=== PATIENT | female | born 1965 | race African-American/Black ===

== ENCOUNTER 2018-06-13 18:14 | Emergency (ER) | payer OTHER ==
[~2018-06-13] VITALS: Ht 167.6 cm; Wt 104.5 kg
[2018-06-13 18:20] VITALS: BP 138/83
[2018-06-13 19:27] VITALS: BP 138/83
== END 2018-06-13 19:27 | disposition home or self-care (01) ==
LOC: MED 18:14
DX: M17.12 Unilateral primary osteoarthritis, left knee (principal); I10 Essential (primary) hypertension; E11.9 Type 2 diabetes mellitus without complications
CPT/HCPCS: 29505; 73562; 99283; Q0092

== ENCOUNTER 2019-02-20 21:53 | Emergency (ER) | payer OTHER ==
[~2019-02-20] VITALS: Ht 167.6 cm; Wt 101.2 kg
[2019-02-20 21:59] VITALS: BP 140/80
--- NOTE | 2019-02-20 21:59 | NUR ---
TO BED # 05 AMBULATORY
[2019-02-20] MEDS ORDERED: ONDANSETRON 4 MG ODT PO ONE (22:45)
[2019-02-20] MEDS ORDERED: NACL 0.9% 1,000 ML IV ONE (23:28)
[2019-02-20] MEDS ORDERED: MORPHINE SULFATE 4 MG/ML SYR IVP ONE (23:30)
[2019-02-20] MEDS ORDERED: ONDANSETRON 4 MG/2 ML VIAL IVP ONE (23:30)
[2019-02-21 00:02] LABS: ALBUMIN 3.5 g/dL (3.4-5.0); CARBON DIOXIDE 30.5 mmol/L (21-32); CREATININE 1.2 mg/dL (0.6-1.3); POTASSIUM 4.5 mmol/L (3.5-5.1); TOTAL BILIRUBIN 0.5 mg/dL (0.0-1.0)
[2019-02-21 00:06] LABS: BASOPHILS # (AUTO) 0.1 K/uL (0.00-0.22); BASOPHILS % (AUTO) 0.8 % (0.0-2.0); EOSINOPHILS # (AUTO) 0.1 K/uL (0-0.4); EOSINOPHILS % (AUTO) 0.7 % (0.0-4.0); HEMATOCRIT 43.8 % (36-48); HEMOGLOBIN 14.7 g/dL (12.0-16.0); LYMPHOCYTES # (AUTO) 2.4 K/uL (2.5-16.5); LYMPHOCYTES % (AUTO) 25.6 % (20.5-51.1); MEAN CORPUSCULAR HEMOGLOBIN 28 pg (27-31); MEAN CORPUSCULAR HGB CONC 34 g/dL (33-37); MONOCYTES # (AUTO) 0.5 K/uL (0.8-1.0); MONOCYTES % (AUTO) 5.8 % (1.7-9.3); NEUTROPHILS # (AUTO) 6.2 K/uL (1.8-7.7); NEUTROPHILS % (AUTO) 67.1 % (42.2-75.2); PLATELET COUNT (AUTO) 280 K/uL (140-450); RED BLOOD CELL COUNT(AUTO) 5.34 MIL/uL (4.20-5.40); RED CELL DISTRIBUTION WIDTH 13.5 % (11.6-13.7); WHITE BLOOD COUNT (AUTO) 9.2 K/uL (4.8-10.8)
[2019-02-21 00:18] LABS: APPEARANCE,URINE CLEAR (CLEAR); BILIRUBIN,URINE NEGATIVE (NEGATIVE); BLOOD, URINE NEGATIVE (NEGATIVE); COLOR,URINE YELLOW (YELLOW); LEUKOCYTE ESTERASE ,URINE NEGATIVE (NEGATIVE); NITRITE, URINE NEGATIVE (NEGATIVE); PH,URINE 7.5 (5.0-9.0); UGLUCOSE NEGATIVE (NEGATIVE)
[2019-02-21] MEDS ORDERED: DICYCLOMINE HCL LIQUID 20 MG, ALUMINUM HYD/MAG/SIMETHICONE 30 ML, LIDOCAINE VISCOUS 2% ... PO ONE ×3 (00:40)
--- NOTE | 2019-02-21 00:51 | NUR ---
PT 189/81, HR 84. PT DENIES CP, SOB, DIZZINESS, N/V. PT IS TAKING LISINOPRIL 20MG DAILY, AMLODIPINE 5MG PO DAILY, AND HCTZ 25MG PO DAILY FOR HTN. DR RODRIGUES MADE AWARE. PER ER MD, NO NEED FOR MED AT THIS TIME, PT INSTRUCTED TO KEEP TAKING RX HTN MEDS ORDERED. OK FOR DISCHARGE.
--- NOTE | 2019-02-21 00:51 | NUR ---
PT LAYING IN BED, RR EVEN AND UNLABORED. REPORTS IMPROVEMENT IN NAUSEA AND PAIN AFTER MEDS, REPORTS 2/10 RUQ/R FLANK PAIN. ADMINISTERED GI COCKTAIL WITH EDUCATION, PT VERBALIZED UNDERSTANDING, TOLERATED MED WELL. ALL NEEDS MET.
[2019-02-21 01:20] VITALS: BP 189/81
--- NOTE | 2019-02-21 01:20 | NUR ---
Patient discharged with v/s stable. Written and verbal after care instructions given and explained. Patient alert, oriented and verbalized understanding of instructions. Ambulatory with steady gait. All questions addressed prior to discharge. ID band removed. Patient advised to follow up with PMD. Rx of KIMBERLEE ORTIZ given. Patient educated on indication of medication including possible reaction and side effects. Opportunity to ask questions provided and answered.
[2019-02-22] MEDS ORDERED: METF500T2 PO (17:22)
[2019-02-22] MEDS ORDERED: ONDA4TAB PO (17:24)
[2019-02-22] MEDS ORDERED: INSULIN (17:24)
[2019-02-22] MEDS ORDERED: FURO-572 PO (17:24)
[2019-02-22] MEDS ORDERED: CALCIUM (17:24)
== END 2019-02-21 01:20 | disposition home or self-care (01) ==
LOC: MED 21:53
DX: R10.11 Right upper quadrant pain (principal); R11.10 Vomiting, unspecified; R19.7 Diarrhea, unspecified; E11.9 Type 2 diabetes mellitus without complications; I10 Essential (primary) hypertension
CPT/HCPCS: 36415; 74176; 80053; 81003; 81025; 82948; 83690; 85025; 96361; 96374; 96375; 99284; J2270; J2405; J7030; Q0162

== ENCOUNTER 2019-02-22 13:05 | Inpatient (IN) | payer OTHER ==
[~2019-02-22] VITALS: Ht 167.6 cm; Wt 97.5 kg
[2019-02-22 13:18] VITALS: BP 167/101
[2019-02-22] MEDS ORDERED: KETOROLAC 30 MG/ML VIAL IVP ONE (14:15)
[2019-02-22] MEDS ORDERED: ONDANSETRON 4 MG/2 ML VIAL IVP ONE ×2 (14:15→18:00)
--- NOTE | 2019-02-22 15:05 | NUR ---
TRIED IV INSERTION IN PT, HARD STICK. RN JOSE ALBERTO HELPING WITH IV .
--- NOTE | 2019-02-22 15:05 | NUR ---
PT C/O N/V & DIZZINESS & R SIDE ABD PAIN 10/10 AND SHARP X 4 DAYS. PT STATES SHE IS UNABLE TO KEEP FOOD OR WATER DOWN. PT STATES SHE WAS RECENTLY HOSPITALIZED IN [facility] ICU FOR SIMALAR SYMPTOMS. FSBS 202 AT THIS TIME HX: DM, HTN, RX: NAMES UNKNOWN
[2019-02-22] MEDS: NACL 0.9% 500 ML IV SCH ×2 (15:14→18:30)
--- NOTE | 2019-02-22 15:17 | NUR ---
CLIN TECH AT BEDSIDE
[2019-02-22 15:35] LABS: BASOPHILS % (AUTO) 0.5 % (0.0-2.0); EOSINOPHILS % (AUTO) 0.1 % (0.0-4.0); HEMOGLOBIN 14.7 g/dL (12.0-16.0); LYMPHOCYTES # (AUTO) 1.6 K/uL (2.5-16.5); LYMPHOCYTES % (AUTO) 20.1 % (20.5-51.1); MEAN CORPUSCULAR HEMOGLOBIN 28 pg (27-31); MEAN CORPUSCULAR HGB CONC 34 g/dL (33-37); MEAN CORPUSCULAR VOLUME 81.8 fL (80-94); MONOCYTES # (AUTO) 0.2 K/uL (0.8-1.0); MONOCYTES % (AUTO) 3.1 % (1.7-9.3); NEUTROPHILS # (AUTO) 6.1 K/uL (1.8-7.7); NEUTROPHILS % (AUTO) 76.2 % (42.2-75.2); PLATELET COUNT (AUTO) 277 K/uL (140-450); RED BLOOD CELL COUNT(AUTO) 5.26 MIL/uL (4.20-5.40); RED CELL DISTRIBUTION WIDTH 13.2 % (11.6-13.7)
[2019-02-22 15:47] LABS: ANION GAP 15.5 (8-16); CARBON DIOXIDE 25.8 mmol/L (21-32); CREATININE 1.3 mg/dL (0.6-1.3); POTASSIUM 4.3 mmol/L (3.5-5.1)
[2019-02-22 15:49] LABS: PROTHROMBIN TIME 10.6 secs (10.8-13.4)
[2019-02-22 16:02] LABS: ALBUMIN 3.7 g/dL (3.4-5.0); TOTAL BILIRUBIN 0.7 mg/dL (0.0-1.0)
--- NOTE | 2019-02-22 16:48 | NUR ---
PT BACK FROM CT. STABLE AT THIS TIME.
[2019-02-22] MEDS ORDERED: METF500T2 PO (17:22)
[2019-02-22] MEDS ORDERED: CALCIUM (17:24)
[2019-02-22] MEDS ORDERED: FURO-572 PO (17:24)
[2019-02-22] MEDS ORDERED: ONDA4TAB PO (17:24)
[2019-02-22] MEDS ORDERED: INSULIN (17:24)
--- NOTE | 2019-02-22 17:25 | NUR ---
PT DOES NOT HAVE HOME MEDICATION LIST, CANNOT RECALL ALL OF HER MEDS OR DOSES, STATES NO ONE IS HOME TO BRING RX LIST. MEDS SHE RECALLS - METFORMIN, INSULIN, CALCIUM, LASIX, ZOFRAN, "BLOOD PRESSURE MEDICATION"
--- NOTE | 2019-02-22 17:33 | NUR ---
INFORMED PT ABOUT BEING ADMITTED TO HOSPITAL. VS SATBLE AT THIS TIME. BP 172/83, ER MD AWARE. WILL CONTINUE TO MONITOR PT.
[2019-02-22] MEDS ORDERED: hydrALAZINE 20 MG/ML VIAL IVP ONE (18:00)
[2019-02-22] MEDS ORDERED: METOCLOPRAMIDE 10 MG/2 ML INJ VIAL IVP ONE (18:00)
--- NOTE | 2019-02-22 18:00 | NUR ---
ADMINISTERED MEDS TO PT ORDERED. PT BP HIGH. AWARE. ANTOINE REASSESS PT BP IN 150MIN. WILL CONTINUE TO MONTOT PT.
[2019-02-22] MEDS ORDERED: LORazepam 2 MG/ML VIAL IVP PRN (18:15)
[2019-02-22] MEDS ORDERED: ALBUTEROL 0.083% 2.5 MG/3 ML NEBU IH PRN (18:15)
[2019-02-22] MEDS ORDERED: ACETAMINOPHEN 325 MG TAB PO PRN (18:15)
[2019-02-22] MEDS ORDERED: DEXTROSE 50% 50 ML SYR IVP PRN (18:15)
--- NOTE | 2019-02-22 18:31 | NUR ---
PT BP 160/70. PT STATES FEELING BETTER AT THIS TIME. RESTING COMFORTABLY IN HER BED. WILL CONTINUE TO MONITOR PT.
[2019-02-22 19:09] LABS: APPEARANCE,URINE CLEAR (CLEAR); BILIRUBIN,URINE NEGATIVE (NEGATIVE); BLOOD, URINE NEGATIVE (NEGATIVE); COLOR,URINE YELLOW (YELLOW); LEUKOCYTE ESTERASE ,URINE NEGATIVE (NEGATIVE); NITRITE, URINE NEGATIVE (NEGATIVE); PH,URINE 8.5 (5.0-9.0); UGLUCOSE NEGATIVE (NEGATIVE)
--- NOTE | 2019-02-22 19:19 | NUR ---
BEDSIDE REPORT GIVEN TO ANA MAGANA. PT STABLE.
[2019-02-22 19:21] LABS: RBC,URINE 0-5 /HPF (0-5); WBC,URINE 0-5 /HPF (0-5)
--- NOTE | 2019-02-22 19:55 | NUR ---
PT BROUGHT UP BY MARANDA BY CHINO DRUPAL WEB DEVELOPER NURSE TO ROOM 125, PT AMBULATED INDEPENDENTLY TO BED B. CHINO RN GAVE REPORT AT BEDSIDE. PT AOX4 SKIN INTACT WITH IV SITE 22G LEFT F/A. V/S FOLLOWS T 99.3 P 95 R 20 B/P 172/86 02 100% ON ROOM AIR. MRSA SWAB DONE AND SENT TO LAB.
--- NOTE | 2019-02-22 19:55 | NUR ---
REPORT GIVEN AND CARE TRANSFERED TO [facility] ROOM 125B. PT TRANSFERED VIA [facility].
[2019-02-22 20:00] VITALS: BP 172/86
[2019-02-22] MEDS: INSULIN LISPRO SLIDING SCALE 100 UNITS/ML VIAL SUBQ PRN (20:51)
[2019-02-22] MEDS: BLOOD GLUCOSE MONITORING 1 DEV DEV FS SCH (21:00)
[2019-02-22] MEDS ORDERED: KETOROLAC 15 MG/ML VIAL IVP PRN (21:00)
--- NOTE | 2019-02-22 21:00 | NUR ---
RFID ENGINEER DR. MATOS WAS PAGED DUE TO PT HIGH BLOOD PRESSURE, MADE AWARE OF CURRENT B/P 172/86, NO NEW ORDER NOTED. WILL CONTINUE TO MONITOR B/P. PT OFFERED ZOFRAN FOR NAUSEA AND DECLINED, PT SAID SHE HAS NO PAIN AT THIS TIME. FINGERSTICK IS 221, PT GIVEN 4 UNITS COVERAGE PROTOCOL.
--- NOTE | 2019-02-22 23:13 | NUR ---
PT IN BED EYES CLOSED AND RESTING. B/P RETAKEN AND IT WAS 143/72. PT HAS NO C/O OF PAIN OR DISCOMFORT AT THIS TIME. NS RUNNING AT 80MLS HR ORDERED. IV SITE 22G ON LEFT F/A INTACT AND FLUSHED PATENT.
[2019-02-23] MEDS: NACL 0.9% 1,000 ML IV SCH ×2 (00:38→07:12)
[2019-02-23] MEDS: MORPHINE SULFATE 4 MG/ML SYR IVP PRN ×2 (00:40→17:07)
[2019-02-23] MEDS: ONDANSETRON 4 MG/2 ML VIAL IVP PRN ×2 (00:43→18:28)
--- NOTE | 2019-02-23 00:49 | NUR ---
PT C/O [id number] 200MLS OF BILE AND PT C/O 04/25 PAIN, SHE WAS GIVEN PRN IVP MORPHINE AND ZOFRAN. WILL MONITOR FOR EFFECT V/S FOLLOWS T 98.8 P 84 R 18 B/P 126/66 02 99% ON ROOM AIR.
--- NOTE | 2019-02-23 01:45 | NUR ---
PT IN BED SLEEPING NO S/S OF PAIN OR DISTRESS NOTED.
[2019-02-23] MEDS: METOCLOPRAMIDE 10 MG/2 ML INJ VIAL IVP SCH ×5 (05:37→19:50)
--- NOTE | 2019-02-23 06:45 | NUR ---
PT IN BED PT GIVEN ORDERED REGLAN IVP. PT FINGERSTICK IS 162, PT GIVEN 2 UNITS OF HUMALOG COVERAGE. NO S/S OF PAIN OR DISTRESS NOTED. WILL ENDORSE POC TO AM SHIFT.
[2019-02-23] MEDS: INSULIN LISPRO SLIDING SCALE 100 UNITS/ML VIAL SUBQ PRN ×4 (06:54→22:05)
--- NOTE | 2019-02-23 07:10 | NUR ---
Pr received from night nurse ANA Fallon. Pt laying in bed comfortably. No signs of acute distress noted at this time. AAOx4. Pt has 22G to L forearm with NS at 80ml/hr. Will continue to monitor for changes in condition.
[2019-02-23] MEDS: BLOOD GLUCOSE MONITORING 1 DEV DEV FS SCH ×4 (07:12→21:00)
[2019-02-23 08:00] VITALS: BP 105/49
[2019-02-23 08:36] LABS: BASOPHILS % (AUTO) 0.3 % (0.0-2.0); EOSINOPHILS % (AUTO) 0.2 % (0.0-4.0); HEMATOCRIT 38.5 % (36-48); LYMPHOCYTES # (AUTO) 2.6 K/uL (2.5-16.5); LYMPHOCYTES % (AUTO) 31.6 % (20.5-51.1); MEAN CORPUSCULAR HEMOGLOBIN 28 pg (27-31); MEAN CORPUSCULAR HGB CONC 34 g/dL (33-37); MEAN CORPUSCULAR VOLUME 82.1 fL (80-94); MONOCYTES # (AUTO) 0.5 K/uL (0.8-1.0); MONOCYTES % (AUTO) 5.8 % (1.7-9.3); NEUTROPHILS # (AUTO) 5.1 K/uL (1.8-7.7); NEUTROPHILS % (AUTO) 62.1 % (42.2-75.2); PLATELET COUNT (AUTO) 262 K/uL (140-450); RED BLOOD CELL COUNT(AUTO) 4.68 MIL/uL (4.20-5.40); WHITE BLOOD COUNT (AUTO) 8.2 K/uL (4.8-10.8)
--- NOTE | 2019-02-23 09:10 | NUR ---
Pt sitting in bed comfortably. No signs of acute distress at this time. will continue to assess for changes in condition.
[2019-02-23] MEDS ORDERED: cloNIDine 0.1 MG TAB PO PRN (09:35)
[2019-02-23 09:41] LABS: ALBUMIN 2.9 g/dL (3.4-5.0); ANION GAP 12.8 (8-16); CREATININE 1.1 mg/dL (0.6-1.3); MAGNESIUM 2.1 mg/dL (1.8-2.4); POTASSIUM 3.8 mmol/L (3.5-5.1); TOTAL BILIRUBIN 0.6 mg/dL (0.0-1.0)
[2019-02-23] MEDS: ENOXAPARIN 40 MG/0.4 ML SYR SUBQ SCH (09:44)
--- NOTE | 2019-02-23 10:55 | NUR ---
Pt requested to take a shower. Pt aaox4, has good safety awareness, able to amb with steady gait. Pt directed shower room, toiletries provided. Instructed pt to pull string if assistance is needed. Pt verbalized understanding.
--- NOTE | 2019-02-23 11:15 | NUR ---
Pt ambulated back to bed post shower. Pt tolerated walking and showing well. Pt was reconnected to IV fluid per order. Pt stated she did not require anything else at this time. Will continue to monitor for changes in condition.
[2019-02-23] MEDS: SENNA 8.6 MG TAB PO SCH ×2 (12:44→17:00)
--- NOTE | 2019-02-23 13:00 | NUR ---
Pt sitting in bed watching tv. No signs of acute distress at this time. Will continue to assess for changes in condition.
--- NOTE | 2019-02-23 15:01 | NUR ---
Pt sleeping in bed. IV high pressure alarm was going off. Pt woken up to assess IV site. IV site was clear of pain, redness, and swelling. Will continue to assess for changes in condition.
[2019-02-23 16:00] VITALS: BP 151/81
--- NOTE | 2019-02-23 16:00 | NUR ---
Reglan IVP administered at 1245. testing projects administrator undone from EMAR by mistake. No further meds given at this time.
[2019-02-23 16:50] VITALS: BP 151/81
--- NOTE | 2019-02-23 18:00 | NUR ---
Pt sitting in bed comfortably eating dinner and watching TV. No signs of acute distress at this time and AAOx4. Will continue to assess for changes in condition.
--- NOTE | 2019-02-23 18:28 | NUR ---
Pt called and presented with nausea and vomiting. Ordered Zofran was administered. Will reassess for effectiveness of medication.
--- NOTE | 2019-02-23 19:26 | NUR ---
Pt endorsed to ANA Fallon. Pt sitting in bed with emesis bag. Pt still has some nausea. To be followed up by night nurse. No signs of acute distress at this time.
--- NOTE | 2019-02-23 19:27 | NUR ---
RECEIVED REPORT FORM BRENDAN RN DAYSHIFT NURSE AT BEDSIDE FOR CONTINUITY OF CARE, PT IN STABLE CONDITION.
--- NOTE | 2019-02-23 20:00 | NUR ---
PT VOMITED 100MLS OF LIGHT GREEN BILE. PT C/O MODERATE PAIN AND CONTINUED NAUSEA . PT GIVEN ORDERED REGLAN IVP AND IVP/PRN TORADOL FO MODERATE PAIN.
--- NOTE | 2019-02-23 22:16 | NUR ---
PT IN BED RESTING WITH EYES CLOSED, BUT AROUSABLE TO NAME. PT V/S FOLLOWS T 98.9 P 76 R 18 B/P181/81 02 99% ON ROOM AIR. PT FINGERSTICK IS 188. PT GIVEN 2 UNITS OF INSULIN COVERAGE WELL PO/PRN CATAPRES FOR HTN. WILL REASSESS B/P MEDS LATER, PT SAID SHE HAD NO MORE PAIN , BUT VOMITED A LITTLE MORE, 50MLS. ZOFRAN NOT DUE AT THIS TIME, BUT WILL RECHECK WITH PT WHEN ZOFRAN CAN BE GIVEN, PT AWARE AND VERBALIZED UNDERSTANDING.
--- NOTE | 2019-02-23 22:44 | NUR ---
CHECK ON PT SHE SAID THAT SHE NO LONGER FEELS NAUSEA AND THAT SHE DOESN'T NEED ZOFRAN AT THIS TIME.
--- NOTE | 2019-02-24 00:22 | NUR ---
PT IN BED SLEEPING NO S/S OF PAIN OR DISTRESS NOTED. PT IV SITE INTACT AND RUNNING N/S AT 40MLS/HR. V/S ARE FOLLOWS T 98.0 P 70 R 18 B/P 112/58 02 99% ON ROOM AIR.
[2019-02-24 00:31] VITALS: BP 112/58
[2019-02-24] MEDS: NACL 0.9% 1,000 ML IV SCH (04:48)
--- NOTE | 2019-02-24 05:30 | NUR ---
PT IN BED SLEEPING NO S/S OF PAIN OR DISTRESS NOTED. NO MORE C/O OF NAUSEA AND VOMITING. PT GIVEN SCHEDULED REGLAN IVP. FINGERSTICK IS 156. PT DECLINES THE 2 UNITS OF COVERAGE DUE TO THE FACT THAT THE PT IS NOT EATING MUCH AND DOESN'T WANT BLOOD SUGAR TO GO TOO LOW. PRIMARY RN VERBALIZED AGREEMENT. IV SITE ON RIGHT F/A AND RUNNING N/S AT 40MLS/HR. PT IS IN LOW BED WITH SIDE RAILS UP X2 AND CALL FLOWER IN REACH. WILL ENDORSE PLAN OF CARE TO AM SHIFT. PT IS STABLE AT THIS TIME.
[2019-02-24] MEDS: METOCLOPRAMIDE 10 MG/2 ML INJ VIAL IVP SCH (05:43)
[2019-02-24] MEDS: BLOOD GLUCOSE MONITORING 1 DEV DEV FS SCH ×2 (05:48→11:59)
--- NOTE | 2019-02-24 06:47 | NUR ---
PATIENT HAS BEEN SCREENED AND CATEGORIZED HIGH NUTRITION RISK. PATIENT WILL BE SEEN WITHIN 1-2 DAYS OF ADMISSION. 02/23/19-02/24/19 FRED HUNT MS, RDN
--- NOTE | 2019-02-24 07:10 | NUR ---
RECEIVED REPORT FROM INDUSTRIAL LOCOMOTIVE OPERATOR NURSE FOR CONTINUITY OF CARE. PT IN STABLE CONDITION. RESPIRATIONS EVEN AND UNLABORED, O2 1L VIA NC. IV INTACT AND PATENT. SAFETY MEASURES IN PLACE. BED IN LOW POSITION. BED ALARM ON. CALL LIGHT AT BEDSIDE. WILL CONTINUE TO MONITOR. Addendum: 02/24/19 at 1140 by Laura Horowitz RN WRONG PATIENT
--- NOTE | 2019-02-24 07:15 | NUR ---
RECEIVED REPORT FROM CHILD & ADOLESCENT PSYCHIATRIST NURSE FOR CONTINUITY OF CARE. PT IN STABLE CONDITION. RESPIRATIONS EVEN AND UNLABORED. IV INTACT AND PATENT. SAFETY MEASURES IN PLACE. BED IN LOW POSITION. CALL LIGHT AT BEDSIDE. WILL CONTINUE TO MONITOR.
[2019-02-24 08:12] VITALS: BP 103/55
--- NOTE | 2019-02-24 08:15 | NUR ---
GAVE REPORT TO DAY SHIFT NURSE BRENDAN FOR CONTINUITY OF CARE. PT IN STABLE CONDITION.
--- NOTE | 2019-02-24 08:16 | NUR ---
Received report from ANA Sanchez. Pt resting in bed, awake, verbally responsive, no signs of distress. Call light within reach.
[2019-02-24] MEDS: ENOXAPARIN 40 MG/0.4 ML SYR SUBQ SCH (08:46)
[2019-02-24] MEDS: SENNA 8.6 MG TAB PO SCH ×2 (08:47→13:00)
[2019-02-24 10:43] LABS: BASOPHILS % (AUTO) 0.6 % (0.0-2.0); EOSINOPHILS % (AUTO) 0.5 % (0.0-4.0); HEMATOCRIT 37.8 % (36-48); HEMOGLOBIN 12.6 g/dL (12.0-16.0); LYMPHOCYTES # (AUTO) 2.5 K/uL (2.5-16.5); LYMPHOCYTES % (AUTO) 39.9 % (20.5-51.1); MEAN CORPUSCULAR HEMOGLOBIN 28 pg (27-31); MEAN CORPUSCULAR HGB CONC 33 g/dL (33-37); MEAN CORPUSCULAR VOLUME 82.7 fL (80-94); MONOCYTES # (AUTO) 0.4 K/uL (0.8-1.0); MONOCYTES % (AUTO) 6.3 % (1.7-9.3); NEUTROPHILS # (AUTO) 3.3 K/uL (1.8-7.7); NEUTROPHILS % (AUTO) 52.7 % (42.2-75.2); PLATELET COUNT (AUTO) 239 K/uL (140-450); RED BLOOD CELL COUNT(AUTO) 4.57 MIL/uL (4.20-5.40); RED CELL DISTRIBUTION WIDTH 13.1 % (11.6-13.7); WHITE BLOOD COUNT (AUTO) 6.3 K/uL (4.8-10.8)
[2019-02-24 11:38] LABS: ANION GAP 12.9 (8-16); CARBON DIOXIDE 23.1 mmol/L (21-32); CREATININE 1.1 mg/dL (0.6-1.3)
--- NOTE | 2019-02-24 12:38 | NUR ---
02/24/19 RD INITIAL ASSESSMENT COMPLETED PLEASE REFER TO NUTRITION ASSESSMENT UNDER CARE ACTIVITY FOR ESTIMATED NUTRITIONAL NEEDS. RD RECOMMENDATIONS: 1. CONTINUE ON FULL LIQUID DIET TOLERATED. 2. ADVANCED TO REGULAR DIET TOLERATED. 3. CONSULT RDN PRN. 4. RD WILL F/U 3-5 DAYS; MODERATE RISK. FRED HUNT, , RDN
--- NOTE | 2019-02-24 13:15 | NUR ---
Written & verbal discharge instructions provided to pt, verbalized understanding. Pt states she has a f/u appt with PCP Dr. Rivas Said on 02/27. Right forearm IV discontinued, catheter intact. Pt discharged at this time with 2 daughters. Name band removed. Pt amb off unit with steady gait. All belongings with pt upon departure.
== END 2019-02-24 13:15 | disposition home or self-care (01) | DRG 282 ==
LOC: MED 13:05 → MMU 18:18
PROVIDERS: ADMIT Internal Medicine Pulmonary Disease; ATTEND Internal Medicine Pulmonary Disease
DX: K85.90 Acute pancreatitis without necrosis or infection, unspecified (principal); E87.2 Acidosis; E11.9 Type 2 diabetes mellitus without complications; E66.9 Obesity, unspecified; K21.9 Gastro-esophageal reflux disease without esophagitis; I10 Essential (primary) hypertension; Z68.34 Body mass index [BMI] 34.0-34.9, adult
CPT/HCPCS: 36415; 71045; 74022; 76705; 80048; 80053; 81001; 82948; 83605; 83690; 83735; 83880; 84484; 85025; 85610; 85730; 87040; 87081; 87086; 93005; 96361; 96374; 96375; 96376; 99285; J0360; J1650; J1815; J1885; J2270; J2405; J2765; J7030; Q0092